=== PATIENT | male | born 1970 | race Caucasian/White ===

== ENCOUNTER 2017-12-28 01:58 | Emergency (ER) | payer MEDICAID ==
[~2017-12-28] VITALS: Ht 182.9 cm; Wt 104.6 kg
[~2017-12-28 01:58] MED LIST: CITA20TA9 PO; DIVA500T2 PO; GABA300C PO; PRAZOSIN; RANI150T4 PO; THORAZINE
[2017-12-28 02:03] VITALS: BP 148/102
== END 2017-12-28 03:09 | disposition home or self-care (01) ==
LOC: ED 03:00
DX: S92.515A Nondisplaced fracture of proximal phalanx of left lesser toe(s), initial encounter for closed fracture (principal); Z21 Asymptomatic human immunodeficiency virus [HIV] infection status; W50.1XXA Accidental kick by another person, initial encounter; Y93.89 Activity, other specified; Y92.009 Unspecified place in unspecified non-institutional (private) residence as the place of occurrence of the external cause; Y99.8 Other external cause status
CPT/HCPCS: 29515; 99283

== ENCOUNTER 2018-01-01 08:40 | Emergency (ER) | payer MEDICAID ==
[~2018-01-01] VITALS: Ht 182.9 cm; Wt 108.5 kg
[2018-01-01 08:47] VITALS: BP 153/95
[2018-01-01] MEDS ORDERED: CARB200T PO (09:17)
[2018-01-01 10:04] LABS: BASOPHILS # (AUTO) 0.01 x10^3/uL (0-0.1); BASOPHILS % (AUTO) 1 % (0-1); EOSINOPHILS # (AUTO) 0.07 x10^3/uL (0-0.4); EOSINOPHILS % (AUTO) 2 % (1-7); LYMPHOCYTES # (AUTO) 1.26 x10^3/uL (1-3.4); LYMPHOCYTES % (AUTO) 41 % (22-44); MD NO; MEAN CORPUSCULAR HEMOGLOBIN 34.4 pg (27.5-34.5); MEAN CORPUSCULAR HGB CONC 34.8 g/dL (33.2-36.2); MEAN CORPUSCULAR VOLUME 98.8 fL (81-97); MONOCYTES % (AUTO) 13 % (2-9); NEUTROPHILS # (AUTO) 1.32 x10^3/uL (1.8-6.8); NEUTROPHILS % (AUTO) 43 % (42-75); PLATELET COUNT 146 x10^3/uL (130-400); RED BLOOD COUNT 4.28 x10^6/uL (4.38-5.82)
[2018-01-01 10:07] LABS: ALANINE AMINOTRANSFERASE 36 U/L (12-78); ALBUMIN 3.4 g/dL (3.4-5.0); ANION GAP 6 mmol/L (5-15); CALCIUM 7.9 mg/dL (8.5-10.1); CHLORIDE 107 mmol/L (98-107)
[2018-01-01 10:12] LABS: ALKALINE PHOSPHATASE 82 U/L (45-117); BILIRUBIN,TOTAL 0.2 mg/dL (0.2-1.0); TOTAL PROTEIN 6.9 g/dL (6.4-8.2)
== END 2018-01-01 11:28 | disposition home or self-care (01) ==
LOC: ED 09:36
DX: R60.0 Localized edema (principal); Z21 Asymptomatic human immunodeficiency virus [HIV] infection status
CPT/HCPCS: 36415; 71046; 80053; 83880; 85025; 93005; 93970; 99284

== ENCOUNTER 2018-08-20 04:22 | Emergency (ER) | payer MEDICAID ==
[~2018-08-20] VITALS: Ht 185.4 cm; Wt 100.8 kg
[~2018-08-20 04:22] MED LIST changes: +CARB200T PO
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
--- NOTE | 2018-08-20 04:49 | NUR ---
ER PA INTO ASSESS PT.
--- NOTE | 2018-08-20 05:28 | NUR ---
pt to ct
[2018-08-20 05:45] LABS: BASOPHILS # (AUTO) 0.02 x10^3/uL (0-0.1); BASOPHILS % (AUTO) 1 % (0-1); EOSINOPHILS # (AUTO) 0.07 x10^3/uL (0-0.4); EOSINOPHILS % (AUTO) 2 % (1-7); LYMPHOCYTES # (AUTO) 1.17 x10^3/uL (1-3.4); LYMPHOCYTES % (AUTO) 30 % (22-44); MD NO; MEAN CORPUSCULAR HEMOGLOBIN 32.3 pg (27.5-34.5); MEAN CORPUSCULAR HGB CONC 33.9 g/dL (33.2-36.2); MEAN CORPUSCULAR VOLUME 95.3 fL (81-97); MEAN PLATELET VOLUME 8.4 fL (7.4-10.4); MONOCYTES % (AUTO) 13 % (2-9); NEUTROPHILS # (AUTO) 2.16 x10^3/uL (1.8-6.8); NEUTROPHILS % (AUTO) 55 % (42-75); PLATELET COUNT 165 x10^3/uL (130-400); RED CELL DISTRIBUTION WIDTH 13.3 % (9.4-14.8)
[2018-08-20 05:53] LABS: ALANINE AMINOTRANSFERASE 34 U/L (12-78); ALBUMIN 3.4 g/dL (3.4-5.0); ANION GAP 7 mmol/L (5-15); CALCIUM 8.6 mg/dL (8.5-10.1); CHLORIDE 107 mmol/L (98-107); CREATININE 1.02 mg/dL (0.7-1.3)
[2018-08-20 05:58] LABS: ALKALINE PHOSPHATASE 78 U/L (45-117); TOTAL PROTEIN 7.5 g/dL (6.4-8.2)
--- NOTE | 2018-08-20 06:30 | NUR ---
pt sleeping on sergei
--- NOTE | 2018-08-20 07:27 | NUR ---
Patient and caregiver given discharge instructions and they have confirmed that they understand the instructions. Patient pushed in wheelchair to d/c. Pt left with dc paperwork, prescription, and all personal belongings. Pt encouraged to return to ED if symptoms change or worsen.
[2018-08-20 07:28] VITALS: BP 128/83
== END 2018-08-20 07:52 | disposition home or self-care (01) ==
LOC: ED 07:33
DX: S00.83XA Contusion of other part of head, initial encounter (principal); S00.81XA Abrasion of other part of head, initial encounter; R60.0 Localized edema; Y04.8XXA Assault by other bodily force, initial encounter; Y93.89 Activity, other specified; Y92.488 Other paved roadways as the place of occurrence of the external cause; Y99.8 Other external cause status
CPT/HCPCS: 36415; 70450; 70486; 80053; 83880; 85025; 93005; 99284

== ENCOUNTER 2019-11-28 01:08 | Emergency (ER) | payer MEDICAID ==
[~2019-11-28] VITALS: Ht 185.4 cm; Wt 97.3 kg
[2019-11-28] MEDS ORDERED: PROPARACAINE OPHTH 0.5%, 15ML EACHEYE ONE (01:30)
[2019-11-28] MEDS ORDERED: IBUPROFEN 600 MG TABLET PO ONE (01:30)
[2019-11-28] MEDS ORDERED: IBUPROFEN 600 MG TABLET ONE (01:41)
[2019-11-28] MEDS ORDERED: PROPARACAINE OPHTH 0.5%, 15ML ONE (01:41)
[2019-11-28] MEDS ORDERED: FLUORESCEIN OPHTHALMIC 1 MG STRIP ONE (01:41)
--- NOTE | 2019-11-28 02:42 | NUR ---
both eye flushed with 500ml NS. Patient tolerated well, offered no complaints at this time. MD aware and down to check pH.
[2019-11-28 03:13] VITALS: BP 114/76
== END 2019-11-28 03:25 | disposition home or self-care (01) ==
LOC: ED 02:00
DX: H10.213 Acute toxic conjunctivitis, bilateral (principal); F17.210 Nicotine dependence, cigarettes, uncomplicated; Y04.8XXA Assault by other bodily force, initial encounter; Y93.89 Activity, other specified; Y92.488 Other paved roadways as the place of occurrence of the external cause; Y99.8 Other external cause status
CPT/HCPCS: 99283; 99406